=== PATIENT | female | born 1955 | race Caucasian/White ===

== ENCOUNTER 2019-03-11 03:50 | Emergency (ER) | payer OTHER ==
--- OUTSIDE RECORDS SUMMARY | 2019-03-11 03:53 | XMS REPORT ---
:1955 Author Organization [employer] Care Team Providers Name Role Phone Joie Santos Provider Role Unavailable Allergies, Adverse Reactions, Alerts Substance Reaction Event Type Symbicort facial swelling Drug Allergy Problems Problem Type Condition Code Onset Dates Condition Status Assessment Obesity (BMI 30-39.9) E66.9 Active Assessment Hot flashes R23.2 Active Assessment Asthma J45.909 Active Assessment Gastroesophageal reflux disease, K21.9 Active esophagitis presence not specified Assessment Chronic obstructive pulmonary J44.9 Active disease, unspecified COPD type Assessment Hyperlipidemia, unspecified E78.5 Active hyperlipidemia type Assessment Prediabetes R73.03 Active Assessment Hypertension, unspecified type I10 Active Problem Hypertension, unspecified type I10 Active Problem Hyperlipidemia E78.5 Active Problem Difficulty sleeping G47.9 Active Problem Hyperlipidemia, unspecified E78.5 Active hyperlipidemia type Problem Edema R60.9 Active Problem Asthma J45.909 Active Problem Mild memory disturbance R41.3 Active Problem Urinary incontinence, unspecified R32 Active type Problem Obesity (BMI 30-39.9) E66.9 Active Problem Chronic obstructive pulmonary J44.9 Active disease, unspecified COPD type Problem Gastroesophageal reflux disease, K21.9 Active esophagitis presence not specified Problem Prediabetes R73.03 Active Problem Anxiety F41.9 Active Problem Insomnia, unspecified type G47.00 Active Problem Hot flashes R23.2 Active Problem Hyperglycemia R73.9 Active Problem Urinary frequency R35.0 Active Assessment Depression with anxiety F41.8 Active Problem Pain in left knee M25.562 Active Assessment Insomnia, unspecified type G47.00 Active Problem Seasonal allergies J30.2 Active Problem GERD without esophagitis K21.9 Active Problem Pain in right ankle and joints of M25.571 Active right foot Problem COPD (chronic obstructive pulmonary J44.9 Active disease) Problem Hypertension I10 Active Problem Depression with anxiety F41.8 Active Problem Eosinophilia D72.1 Active Medications Medication Code Code Instructions Start End Status Dosage System Date Date Barry Huston [facility] 01138517031 100 MG Orally Active 1 capsule as Three times a needed day Meclizine HCl ND 56572524910 25 MG Orally Active 1 tablet as Once a day needed Bactroban [facility] 82311959344 2 % Externally Active 1 application Three times a to affected day area Trazodone HCl [facility] 76688557135 50 MG Orally Sept Active 1-2 tablets Once a day 20, at bedtime as 2018 needed for sleep Tramadol HCl [facility] 18328769232 50 MG Orally Active 1 tablet as Twice a day needed Amlodipine [facility] 60994164058 5 MG Orally Active 1 tablet Besylate Once a day Singulair ND 30582191418 10 MG Orally Active 1 tablet Once a day Fluconazole ND 62549010713 150 MG Orally Active 1 tablet Symbicort [facility] 95773512703 160-4.5 MCG/ACT Active 2 puffs Inhalation Twice a day Pantoprazole [facility] 82914306648 40 MG Orally Active 1 tablet Sodium Once a day BusPIRone HCl [facility] 02542606373 15 MG Orally Active 1 tablet as Twice a day needed for anxiety Amitriptyline [facility] 17396326969 10 MG Orally Nov 25, Active 1 tablet at HCl Once a day 2019 bedtime as needed for sleep Pravastatin [facility] 07332070643 20 mg Orally Active 1 tablet in Sodium Once a day evening Anoro Ellipta [facility] 35233681357 62.5-25 MCG/INH Active 1 puff Inhalation Once a day Augmentin [facility] 17593286749 500-125 MG Active 1 tablet Orally Twice daily Mobic [facility] 47020685199 15 MG Orally Active 1 tablet Once a day Metoprolol [facility] 20492862783 25 mg Orally Active 1 tablet with Tartrate Twice a day food Breo Ellipta [facility] 73842283205 100-25 MCG/INH Active 1 puff Inhalation Once a day Omeprazole ND 00451107130 40 MG Orally Active 1 capsule Once a day Duloxetine HCl [facility] 77450693181 60 MG Orally Active 1 capsule Twice a day Wellbutrin XL [facility] 31238611847 150 MG Orally Active 1 tablet in Once a day the morning Ativan [facility] 10719787667 0.5 MG Orally Active 1 tablet as twice a day needed Trazodone HCl [facility] 32950887459 100 MG Orally Active 1 tablet at Once a day bedtime Lipitor [facility] 23323050988 20 MG Orally Active 1 tablet Once a day Ventolin HFA [facility] 55275136964 108 (90 Base) Active 2 puffs as MCG/ACT needed for Inhalation sob/wheezing every 4-6 hrs Results No Known Results Summary Purpose eClinicalWorks Submission
--- OUTSIDE RECORDS SUMMARY | 2019-03-11 03:53 | XMS REPORT ---
:1955 Author Organization [employer] Care Team Providers Name Role Phone Joie Santos Provider Role Unavailable Allergies, Adverse Reactions, Alerts Substance Reaction Event Type Symbicort facial swelling Drug Allergy Problems Problem Type Condition Code Onset Dates Condition Status Problem Depression with anxiety F41.8 Active Problem Edema R60.9 Active Problem Eosinophilia D72.1 Active Problem Insomnia, unspecified type G47.00 Active Problem Difficulty sleeping G47.9 Active Assessment Medicare annual wellness visit, Z00.00 Active subsequent Assessment Depression screening Z13.31 Active Problem Hot flashes R23.2 Active Problem COPD (chronic obstructive pulmonary J44.9 Active disease) Problem Asthma J45.909 Active Problem Hyperlipidemia E78.5 Active Problem Hypertension I10 Active Problem Anxiety F41.9 Active Problem Gastroesophageal reflux disease, K21.9 Active esophagitis presence not specified Problem Hypertension, unspecified type I10 Active Problem Hyperlipidemia, unspecified E78.5 Active hyperlipidemia type Problem GERD without esophagitis K21.9 Active Problem Pain in right ankle and joints of M25.571 Active right foot Assessment Encounter for screening for Z13.820 Active osteoporosis Problem Chronic obstructive pulmonary J44.9 Active disease, unspecified COPD type Problem Pain in left knee M25.562 Active Assessment Encounter for screening mammogram Z12.31 Active for breast cancer Problem Mild memory disturbance R41.3 Active Problem Seasonal allergies J30.2 Active Medications Medication Code Code Instructions Start End Status Dosage System Date Date Breo Ellipta [facility] 36206482939 100-25 MCG/INH Active 1 puff Inhalation Once a day Amlodipine ND 22316532449 5 MG Orally Active 1 tablet Besylate Once a day Metoprolol ND 46973829894 25 mg Orally Active 1 tablet with Tartrate Twice a day food Augmentin [facility] 41857261642 500-125 MG Active 1 tablet Orally Twice daily Symbicort ND 02326844239 160-4.5 MCG/ACT Active 2 puffs Inhalation Twice a day Ativan ND 33607805089 0.5 MG Orally Active 1 tablet as twice a day needed Meclizine HCl [facility] 69172694221 25 MG Orally Active 1 tablet as Once a day needed Trazodone HCl [facility] 88479912986 50 MG Orally Sept 20, Active 1-2 tablets Once a day 2018 at bedtime as needed for sleep Omeprazole ND 34680630309 40 MG Orally Active 1 capsule Once a day Tramadol HCl ND 68808938351 50 MG Orally Active 1 tablet as Twice a day needed Bactroban [facility] 23465170868 2 % Externally Active 1 application Three times a to affected day area Wellbutrin XL [facility] 15036361824 150 MG Orally Active 1 tablet in Once a day the morning Lipitor ND 87490979628 20 MG Orally Active 1 tablet Once a day Tessalon Perles [facility] 29078022235 100 MG Orally Active 1 capsule as Three times a needed day Fluconazole ND 59902845970 150 MG Orally Active 1 tablet Pravastatin [facility] 18144106898 20 mg Orally Active 1 tablet in Sodium Once a day evening Singulair [facility] 67718288768 10 MG Orally Active 1 tablet Once a day Mobic [facility] 19928622773 15 MG Orally Active 1 tablet Once a day Pantoprazole [facility] 43995657266 40 MG Orally Active 1 tablet Sodium Once a day BusPIRone HCl ND 67846573896 7.5 MG Orally Active 1 tablet as Twice a day needed for anxiety Ventolin HFA [facility] 09147640119 108 (90 Base) Active 2 puffs as MCG/ACT needed Inhalation every 4-6 hrs Duloxetine HCl [facility] 48251532543 60 MG Orally Active 1 capsule Once a day Trazodone HCl [facility] 12977482004 100 MG Orally Active 1 tablet at Once a day bedtime Results No Known Results Summary Purpose eClinicalWorks Submission
--- OUTSIDE RECORDS SUMMARY | 2019-03-11 03:53 | XMS REPORT ---
:1955 Author Organization [employer] Care Team Providers Name Role Phone Joie Santos Provider Role Unavailable Allergies, Adverse Reactions, Alerts Substance Reaction Event Type Symbicort facial swelling Drug Allergy Problems Problem Type Condition Code Onset Dates Condition Status Assessment Hypertension, unspecified type I10 Active Assessment Prediabetes R73.03 Active Assessment Depression with anxiety F41.8 Active Problem Hypertension, unspecified type I10 Active [...] R73.9 Active Problem Urinary frequency R35.0 Active Problem Pain in left knee M25.562 Active Problem Seasonal allergies J30.2 Active Problem GERD without esophagitis K21.9 Active Problem Pain in right ankle and joints of M25.571 Active right foot Problem COPD (chronic obstructive pulmonary J44.9 Active disease) Problem Hypertension I10 Active Problem Depression with anxiety F41.8 Active Problem Eosinophilia D72.1 Active Medications Medication Code Code Instructions Start End Status Dosage System Date Date Symbicort [facility] 05475969152 160-4.5 MCG/ACT Active 2 puffs Inhalation Twice a day Duloxetine HCl [facility] 89212968602 60 MG Orally Active 1 capsule Twice a day Tessalon Perles [facility] 22944497683 100 MG Orally Active 1 capsule as Three times a needed day Meclizine HCl [facility] 41843275247 25 MG Orally Active 1 tablet as Once a day needed Tramadol HCl ND 64454341365 50 MG Orally Active 1 tablet as Twice a day needed Wellbutrin XL [facility] 63684102416 150 MG Orally Active 1 tablet in Once a day the morning Anoro Ellipta [facility] 19777497912 62.5-25 MCG/INH April Active 1 puff Inhalation Once , a day 2019 Metoprolol [facility] 83006471548 25 mg Orally Active 1 tablet with Tartrate Twice a day food BusPIRone HCl [facility] 73406373569 15 MG Orally Active 1 tablet as Twice a day needed for anxiety Augmentin [facility] 99717535141 500-125 MG Active 1 tablet Orally Twice daily Breo Ellipta [facility] 77697701095 100-25 MCG/INH Active 1 puff Inhalation Once a day Trazodone HCl [facility] 55249441827 100 MG Orally Active 1 tablet at Once a day bedtime Singulair [facility] 99557493020 10 MG Orally Active 1 tablet Once a day Omeprazole [facility] 01336929342 40 MG Orally Active 1 capsule Once a day Amlodipine [facility] 49936351683 5 MG Orally Active 1 tablet Besylate Once a day Ativan [facility] 92723234879 0.5 MG Orally Active 1 tablet as twice a day needed Fluconazole [facility] 27977917591 150 MG Orally Active 1 tablet Mobic [facility] 23730154250 15 MG Orally Active 1 tablet Once a day Pravastatin [facility] 01989121532 20 mg Orally Active 1 tablet in Sodium Once a day evening Trazodone HCl [facility] 11585141617 50 MG Orally Sept Active 1-2 tablets Once a day 20, at bedtime as 2018 needed for sleep Pantoprazole [facility] 77144349381 40 MG Orally Active 1 tablet Sodium Once a day Bactroban [facility] 07590775506 2 % Externally Active 1 application Three times a to affected day area Lipitor ND 72219644263 20 MG Orally Active 1 tablet Once a day Ventolin HFA [facility] 18576856255 108 (90 Base) Active 2 puffs as MCG/ACT needed Inhalation every 4-6 hrs Results Name Result Date Reference Range Unit Abnormality Flag GLUCOSE FINGER ----Result 121--[id number] Summary Purpose eClinicalWorks Submission
--- OUTSIDE RECORDS SUMMARY | 2019-03-11 03:53 | XMS REPORT ---
:1955 Author Organization eClinicalWorks Care Team Providers Name Role Phone Danielle Joie Provider Role Unavailable Allergies No Known Allergies Problems Problem Type Condition Code Onset Dates Condition Status Assessment Gastroesophageal reflux disease, K21.9 Active esophagitis [...] Problem Eosinophilia D72.1 Active Medications Medication Code System Code Instructions Start End Date Status Dosage Date Omeprazole [facility] 25338742542 40 MG Orally Once Active 1 capsule a day Results No Known Results Summary Purpose eClinicalWorks Submission
[2019-03-11] MEDS ORDERED: ONDANSETRON 4 MG/2 ML VIAL ONE (04:25)
[2019-03-11] MEDS ORDERED: NA CHLORIDE 0.9% 1,000 ML ONE ×2 (04:25→05:37)
[2019-03-11 04:48] LABS: Absolute Lymphocytes (CBC) 1.7 K/uL (0.7-4.9); Basophils % 0.9 % (0-1.3); Hematocrit 41.6 % (36.0-45.0); Lymphocytes % 25.1 % (15.3-44.8); MPV 9.5 fL (7.6-11.3); RBC Red Blood Cell Count 4.39 M/uL (3.86-4.86)
[2019-03-11 05:11] LABS: Albumin 3.6 g/dL (3.4-5.0); Bilirubin Direct 0.1 mg/dL (0-0.2); Bilirubin Total 0.5 mg/dL (0.2-1.0); Potassium 3.2 mmol/L (3.5-5.1)
[2019-03-11] MEDS ORDERED: POTASSIUM 25 MEQ EFFERV TAB ONE (06:27)
--- NOTE | 2019-03-11 06:52 | ER ---
Nurse's Notes [facility] Name: Gerda Cullen Age: 63 yrs Sex: Female : 1955 Arrival Date: 03/11/2019 Time: 03:53 Bed 15 Private MD: Diagnosis: Vomiting, unspecified;Diarrhea, unspecified;Other viral enteritis Presentation: 03/11 04:04 Presenting complaint: Patient states: Nausea, vomiting and diarrhea that started wh Sunday. Pt states she cant keep anything down. Accompanied by on and off fever. Transition of care: patient was not received from another setting of care. Onset of symptoms was March 11, 2019. Risk Assessment: Do you want to hurt yourself or someone else? Patient reports no desire to harm self or others. Initial Sepsis Screen: Does the patient meet any 2 criteria? HR > 90 bpm. Does the patient have a suspected source of infection? No. Patient's initial sepsis screen is negative. Care prior to arrival: None. 04:04 Method Of Arrival: Ambulatory 04:04 Acuity: AJAY 3 Historical: - Allergies: 04:06 No Known Allergies; - PMHx: 04:06 Anxiety; Asthma; Depression; Hypertension; - PSHx: 04:06 Appendectomy; Knee and Ankle SUrgery; - Immunization history:: Adult Immunizations not up to date. - Coronavirus screen:: The patient has NOT traveled to [place], [place], or [place] in the past 14 days. - Social history:: Smoking status: Patient uses street drugs, marijuana, Patient/guardian denies using. - Ebola Screening: : Patient negative for fever greater than or equal to 101.5 degrees Fahrenheit, and additional compatible Ebola Virus Disease symptoms Patient denies exposure to infectious person. Screenin:08 Abuse screen: Denies threats or abuse. Denies injuries from another. Nutritional screening: No deficits noted. Tuberculosis screening: No symptoms or risk factors identified. Fall Risk None identified. Assessment: 04:07 General: Appears in no apparent distress. Behavior is calm, cooperative, appropriate wh for age. Pain: Denies pain. Neuro: Level of Consciousness is awake, alert, obeys commands, Oriented to person, place, time, situation, Appropriate for age. Cardiovascular: Heart tones S1 S2. Respiratory: Airway is patent Respiratory effort is even, unlabored, Respiratory pattern is regular, symmetrical, Breath sounds are clear bilaterally. GI: Abdomen is flat, non-distended, Abd is soft and non tender X 4 quads. Reports diarrhea, nausea, vomiting. : No signs and/or symptoms were reported regarding the genitourinary system. EENT: No signs and/or symptoms were reported regarding the EENT system. Derm: Skin is intact, is healthy with good turgor, Skin is pink, warm \T\ dry. normal. Musculoskeletal: Circulation, motion, and sensation intact. 05:11 Reassessment: Patient appears in no apparent distress at this time. No changes from previously documented assessment. Patient and/or family updated on plan of care and expected duration. Pain level reassessed. Patient is alert, oriented x 3, equal unlabored respirations, skin warm/dry/pink. 06:29 Reassessment: Patient appears in no apparent distress at this time. No changes from previously documented assessment. Patient and/or family updated on plan of care and expected duration. Pain level reassessed. Patient is alert, oriented x 3, equal unlabored respirations, skin warm/dry/pink. Patient denies pain at this time. Patient states feeling better. Patient states symptoms have improved. Vital Signs: 04:06 BP 141 / 64; Pulse 114; Resp 18; Temp 98; Pulse Ox 99% ; Weight 127.01 kg; Height 5 ft. wh 9 in. (175.26 cm); Pain 0/10; 05:11 BP 134 / 72; Pulse 89; Resp 18; Pulse Ox 95% on R/A; wh 06:29 BP 130 / 81; Pulse 82; Resp 18; Pulse Ox 98% on R/A; wh 04:06 Body Mass Index 41.35 (127.01 kg, 175.26 cm) ED Course: 03:53 Patient arrived in ED. cl3 03:54 Cale Kenny is Primary Nurse. 04:05 Triage completed. wh 04:09 David Quigley MD is Attending Physician. tw4 04:09 Arm band placed on right wrist. wh 04:09 Patient has correct armband on for positive identification. Placed in gown. Bed in low wh position. Call light in reach. Side rails up X 1. Pulse ox on. NIBP on. 04:34 Inserted saline lock: 22 gauge in right wrist, using aseptic technique. Blood collected.ri 06:58 No provider procedures requiring assistance completed. IV discontinued, intact, bleeding controlled, No redness/swelling at site. Administered Medications: 04:36 Drug: NS 0.9% 1000 ml Route: IV; Rate: 1000 ml; Site: right hand; 05:46 Follow up: Response: No adverse reaction; IV Status: Completed infusion 04:36 Drug: Zofran 4 mg Route: IVP; Site: right hand; 05:46 Follow up: Response: No adverse reaction; Nausea is decreased 05:36 Drug: NS 0.9% 1000 ml Route: IV; Rate: 1000 ml; Site: right hand; 06:28 Follow up: Response: No adverse reaction; IV Status: Completed infusion 06:28 Drug: Potassium Effervescent Tablet 50 mEq Route: PO; 06:28 Follow up: Response: No adverse reaction Outcome: 06:52 Discharge ordered by . tw4 06:59 Discharged to home ambulatory, with family. 06:59 Condition: stable 06:59 Discharge instructions given to patient, family, Instructed on discharge instructions, follow up and referral plans. medication usage, POC Demonstrated understanding of instructions, follow-up care, medications, POC Prescriptions given X 2. 06:59 Patient left the ED. Signatures: Anne Martines ri Cale Kenny David Quigley MD MD tw4 Mery Lorenzo cl3
--- NOTE | 2019-03-11 06:52 | EDPHYS ---
Physician Documentation [facility] Name: Gerda Cullen Age: 63 yrs Sex: Female : 1955 Arrival Date: 03/11/2019 Time: 03:53 Bed 15 Private MD: ED Physician David Quigley HPI: 03/11 04:50 This 63 yrs old Female presents to ER via Ambulatory with complaints of tw4 Nausea/Vomiting/Diarrhea. 04:50 The patient presents to the emergency department with nausea, vomiting. Onset: The tw4 symptoms/episode began/occurred 2 day(s) ago. Possible causes: unknown. The symptoms are aggravated by nothing. The symptoms are alleviated by nothing. Severity of symptoms: At their worst the symptoms were moderate in the emergency department the symptoms are unchanged. The patient has not experienced similar symptoms in the past. 04:50 The patient presents to the emergency department with diarrhea. tw4 Historical: - Allergies: 04:06 No Known Allergies; - PMHx: 04:06 Anxiety; Asthma; Depression; Hypertension; - PSHx: 04:06 Appendectomy; Knee and Ankle SUrgery; wh - Immunization history:: Adult Immunizations not up to date. - Coronavirus screen:: The patient has NOT traveled to [place], [place], or [place] in the past 14 days. - Social history:: Smoking status: Patient uses street drugs, marijuana, Patient/guardian denies using. - Ebola Screening: : Patient negative for fever greater than or equal to 101.5 degrees Fahrenheit, and additional compatible Ebola Virus Disease symptoms Patient denies exposure to infectious person. ROS: 04:50 Constitutional: Negative for fever, chills, and weight loss. tw4 04:50 ENT: Negative for injury, pain, and discharge, Neck: Negative for injury, pain, and swelling, Cardiovascular: Negative for chest pain, palpitations, and edema, Respiratory: Negative for shortness of breath, cough, wheezing, and pleuritic chest pain, Back: Negative for injury and pain, MS/Extremity: Negative for injury and deformity, Skin: Negative for injury, rash, and discoloration, Neuro: Negative for headache, weakness, numbness, tingling, and seizure. 04:50 Abdomen/GI: Positive for nausea and vomiting, nausea, vomiting, and diarrhea, nausea, vomiting, diarrhea, Negative for abdominal pain, constipation, abdominal cramps, abdominal distension, anorexia, dysphagia, hematemesis, black/tarry stool, rectal pain, rectal bleeding, bowel incontinence, flatulence. Exam: 04:50 Constitutional: This is a well developed, well nourished patient who is awake, alert, tw4 and in no acute distress. Head/Face: Normocephalic, atraumatic. Chest/axilla: Normal chest wall appearance and motion. Nontender with no deformity. No lesions are appreciated. Cardiovascular: Regular rate and rhythm with a normal S1 and S2. No gallops, murmurs, or rubs. Normal PMI, no JVD. No pulse deficits. Respiratory: Lungs have equal breath sounds bilaterally, clear to auscultation and percussion. No rales, rhonchi or wheezes noted. No increased work of breathing, no retractions or nasal flaring. Abdomen/GI: Soft, non-tender, with normal bowel sounds. No distension or tympany. No guarding or rebound. No evidence of tenderness throughout. Back: No spinal tenderness. No costovertebral tenderness. Full range of motion. MS/ Extremity: Pulses equal, no cyanosis. Neurovascular intact. Full, normal range of motion. Neuro: Awake and alert, GCS 15, oriented to person, place, time, and situation. Cranial nerves II-XII grossly intact. Motor strength 5/5 in all extremities. Sensory grossly intact. Cerebellar exam normal. Normal gait. Vital Signs: 04:06 BP 141 / 64; Pulse 114; Resp 18; Temp 98; Pulse Ox 99% ; Weight 127.01 kg; Height 5 ft. wh 9 in. (175.26 cm); Pain 0/10; 05:11 BP 134 / 72; Pulse 89; Resp 18; Pulse Ox 95% on R/A; wh 06:29 BP 130 / 81; Pulse 82; Resp 18; Pulse Ox 98% on R/A; wh 04:06 Body Mass Index 41.35 (127.01 kg, 175.26 cm) MDM: 04:09 Patient medically screened. tw4 06:55 Differential diagnosis: Nonspecific abd pain, cholecystitis. Data reviewed: vital tw4 signs, nurses notes. Data interpreted: Pulse oximetry: Interpretation: normal. Counseling: I had a detailed discussion with the patient and/or guardian regarding: the historical points, exam findings, and any diagnostic results supporting the discharge/admit diagnosis. Medication response: Zofran relieved the patient's nausea. Response to treatment: the patient's symptoms have resolved after treatment, and as a result, I will discharge patient. Special discussion: I discussed with the patient/guardian in detail that at this point there is no indication for admission to the hospital. It is understood, however, that if the symptoms persist or worsen the patient needs to return immediately for re-evaluation. 03/11 04:03 Order name: Basic Metabolic Panel; Complete Time: 06:21 03/11 06:21 Interpretation: Normal except: K 3.2; GLUC 160; GFR 60. 03/11 04:03 Order name: CBC with Diff; Complete Time: 06:21 03/11 06:21 Interpretation: Within normal limits. 03/11 04:03 Order name: Creatinine for Radiology; Complete Time: 06:21 03/11 06:21 Interpretation: Within normal limits: CRE 0.94; GFR 60. 03/11 04:03 Order name: Hepatic Function; Complete Time: 06:21 03/11 06:21 Interpretation: Normal except: AST 71; GLOB 4.4; A/G 0.8. 03/11 04:03 Order name: Lipase; Complete Time: 06:21 03/11 06:21 Interpretation: Within normal limits: LIP 123. 03/11 04:03 Order name: IV Saline Lock; Complete Time: 04:37 03/11 04:03 Order name: Labs collected and sent; Complete Time: 04:37 4 Administered Medications: 04:36 Drug: NS 0.9% 1000 ml Route: IV; Rate: 1000 ml; Site: right hand; 05:46 Follow up: Response: No adverse reaction; IV Status: Completed infusion 04:36 Drug: Zofran 4 mg Route: IVP; Site: right hand; 05:46 Follow up: Response: No adverse reaction; Nausea is decreased 05:36 Drug: NS 0.9% 1000 ml Route: IV; Rate: 1000 ml; Site: right hand; 06:28 Follow up: Response: No adverse reaction; IV Status: Completed infusion 06:28 Drug: Potassium Effervescent Tablet 50 mEq Route: PO; 06:28 Follow up: Response: No adverse reaction Disposition: 03/11/19 06:52 Discharged to Home. Impression: Vomiting, unspecified, Diarrhea, unspecified, Other viral enteritis. - Condition is Stable. - Discharge Instructions: Diarrhea, Adult, Viral Gastroenteritis, Adult, [id number]. - Prescriptions for Zofran 4 mg Oral Tablet - take 1 tablet by ORAL route every 12 hours As needed; 6 tablet. Lomotil 2.5- 0.025 mg Oral Tablet - take 2 tablet by ORAL route once daily As needed; 20 tablet. - Medication Reconciliation Form, Thank You Letter, Antibiotic Education, Prescription Opioid Use form. - Follow up: Private Physician; When: Upon discharge from the Emergency Department; Reason: Recheck today's complaints, Continuance of care. - Problem is new. - Symptoms have improved. Signatures: Dispatcher [employer] Cale Chen Terrence, MD [place] tw4 Corrections: (The following items were deleted from the chart) 06:59 06:52 03/11/2019 06:52 Discharged to Home. Impression: Vomiting, unspecified; Diarrhea, wh unspecified; Other viral enteritis. Condition is Stable. Forms are Medication Reconciliation Form, Thank You Letter, Antibiotic Education, Prescription Opioid Use. Follow up: Private Physician; When: Upon discharge from the Emergency Department; Reason: Recheck today's complaints, Continuance of care. Problem is new. Symptoms have improved. tw4
[2019-03-11 07:08] VITALS: TEMP 98
[2019-03-11 07:10] VITALS: BP 130/81; O2SAT 98
== END 2019-03-11 06:59 | disposition home or self-care (01) ==
LOC: ER 03:50
DX: A08.4 Viral intestinal infection, unspecified (principal)
CPT/HCPCS: 96361; 85025; 80048; 36415; 80076; 83690; 96374; 99284; J7030 ×2; J2405

== ENCOUNTER 2019-03-13 18:40 | Inpatient (IN) | payer OTHER ==
--- OUTSIDE RECORDS SUMMARY | 2019-03-13 18:43 | XMS REPORT ---
[...] Start End Date Status Dosage Date Omeprazole [facility] 59022733289 40 MG Orally Once Active 1 capsule a day Results No Known Results Summary Purpose eClinicalWorks Submission
--- OUTSIDE RECORDS SUMMARY | 2019-03-13 18:43 | XMS REPORT ---
[...] Dosage System Date Date Barry Huston [facility] 63866849391 100 MG Orally Active 1 capsule as Three times a needed day Meclizine HCl ND 40992052815 25 MG Orally Active 1 tablet as Once a day needed Bactroban [facility] 79190703223 2 % Externally Active 1 application Three times a to affected day area Trazodone HCl [facility] 20634966127 50 MG Orally Sept Active 1-2 tablets Once a day 20, at bedtime as 2018 needed for sleep Tramadol HCl [facility] 38045028195 50 MG Orally Active 1 tablet as Twice a day needed Amlodipine [facility] 89034496912 5 MG Orally Active 1 tablet Besylate Once a day Singulair ND 41775177894 10 MG Orally Active 1 tablet Once a day Fluconazole ND 00718918887 150 MG Orally Active 1 tablet Symbicort [facility] 50003361245 160-4.5 MCG/ACT Active 2 puffs Inhalation Twice a day Pantoprazole [facility] 30545870123 40 MG Orally Active 1 tablet Sodium Once a day BusPIRone HCl [facility] 17071429613 15 MG Orally Active 1 tablet as Twice a day needed for anxiety Amitriptyline [facility] 16108393763 10 MG Orally Nov 25, Active 1 tablet at HCl Once a day 2019 bedtime as needed for sleep Pravastatin [facility] 23822882732 20 mg Orally Active 1 tablet in Sodium Once a day evening Anoro Ellipta [facility] 42941180029 62.5-25 MCG/INH Active 1 puff Inhalation Once a day Augmentin [facility] 32362443125 500-125 MG Active 1 tablet Orally Twice daily Mobic [facility] 52251816131 15 MG Orally Active 1 tablet Once a day Metoprolol [facility] 47324440116 25 mg Orally Active 1 tablet with Tartrate Twice a day food Breo Ellipta [facility] 74337618086 100-25 MCG/INH Active 1 puff Inhalation Once a day Omeprazole ND 83528554866 40 MG Orally Active 1 capsule Once a day Duloxetine HCl [facility] 54925667763 60 MG Orally Active 1 capsule Twice a day Wellbutrin XL [facility] 11966599377 150 MG Orally Active 1 tablet in Once a day the morning Ativan [facility] 90216670468 0.5 MG Orally Active 1 tablet as twice a day needed Trazodone HCl [facility] 94677725121 100 MG Orally Active 1 tablet at Once a day bedtime Lipitor [facility] 35663856062 20 MG Orally Active 1 tablet Once a day Ventolin HFA [facility] 13654852812 108 (90 Base) Active 2 puffs as MCG/ACT needed for Inhalation sob/wheezing every 4-6 hrs Results No Known Results Summary Purpose eClinicalWorks Submission
--- OUTSIDE RECORDS SUMMARY | 2019-03-13 18:43 | XMS REPORT ---
[...] End Status Dosage System Date Date Symbicort [facility] 48430212139 160-4.5 MCG/ACT Active 2 puffs Inhalation Twice a day Duloxetine HCl [facility] 85467632422 60 MG Orally Active 1 capsule Twice a day Tessalon Perles [facility] 31394811519 100 MG Orally Active 1 capsule as Three times a needed day Meclizine HCl [facility] 75506983008 25 MG Orally Active 1 tablet as Once a day needed Tramadol HCl ND 71558917951 50 MG Orally Active 1 tablet as Twice a day needed Wellbutrin XL [facility] 54048940108 150 MG Orally Active 1 tablet in Once a day the morning Anoro Ellipta [facility] 58204775000 62.5-25 MCG/INH April Active 1 puff Inhalation Once , a day 2019 Metoprolol [facility] 59167138160 25 mg Orally Active 1 tablet with Tartrate Twice a day food BusPIRone HCl [facility] 79748736191 15 MG Orally Active 1 tablet as Twice a day needed for anxiety Augmentin [facility] 30070209740 500-125 MG Active 1 tablet Orally Twice daily Breo Ellipta [facility] 79791394848 100-25 MCG/INH Active 1 puff Inhalation Once a day Trazodone HCl [facility] 92225899374 100 MG Orally Active 1 tablet at Once a day bedtime Singulair [facility] 66015364651 10 MG Orally Active 1 tablet Once a day Omeprazole [facility] 16621338613 40 MG Orally Active 1 capsule Once a day Amlodipine [facility] 60512181001 5 MG Orally Active 1 tablet Besylate Once a day Ativan [facility] 94357292782 0.5 MG Orally Active 1 tablet as twice a day needed Fluconazole [facility] 76141126504 150 MG Orally Active 1 tablet Mobic [facility] 03896418735 15 MG Orally Active 1 tablet Once a day Pravastatin [facility] 77399629494 20 mg Orally Active 1 tablet in Sodium Once a day evening Trazodone HCl [facility] 30164310612 50 MG Orally Sept Active 1-2 tablets Once a day 20, at bedtime as 2018 needed for sleep Pantoprazole [facility] 56129162990 40 MG Orally Active 1 tablet Sodium Once a day Bactroban [facility] 82446571222 2 % Externally Active 1 application Three times a to affected day area Lipitor ND 41673201298 20 MG Orally Active 1 tablet Once a day Ventolin HFA [facility] 29441876233 108 (90 Base) Active 2 puffs as MCG/ACT needed Inhalation every 4-6 hrs Results Name Result Date Reference Range Unit Abnormality Flag GLUCOSE FINGER ----Result 121--[id number] Summary Purpose eClinicalWorks Submission
--- OUTSIDE RECORDS SUMMARY | 2019-03-13 18:43 | XMS REPORT ---
[...] Status Dosage System Date Date Breo Ellipta [facility] 32863734378 100-25 MCG/INH Active 1 puff Inhalation Once a day Amlodipine ND 63281130892 5 MG Orally Active 1 tablet Besylate Once a day Metoprolol ND 39173142665 25 mg Orally Active 1 tablet with Tartrate Twice a day food Augmentin [facility] 74702043459 500-125 MG Active 1 tablet Orally Twice daily Symbicort ND 50837481103 160-4.5 MCG/ACT Active 2 puffs Inhalation Twice a day Ativan ND 02684093877 0.5 MG Orally Active 1 tablet as twice a day needed Meclizine HCl [facility] 15840150118 25 MG Orally Active 1 tablet as Once a day needed Trazodone HCl [facility] 63953209730 50 MG Orally Sept 20, Active 1-2 tablets Once a day 2018 at bedtime as needed for sleep Omeprazole ND 45328348431 40 MG Orally Active 1 capsule Once a day Tramadol HCl ND 04935222731 50 MG Orally Active 1 tablet as Twice a day needed Bactroban [facility] 29996983739 2 % Externally Active 1 application Three times a to affected day area Wellbutrin XL [facility] 31313211442 150 MG Orally Active 1 tablet in Once a day the morning Lipitor ND 98942161058 20 MG Orally Active 1 tablet Once a day Tessalon Perles [facility] 67651189460 100 MG Orally Active 1 capsule as Three times a needed day Fluconazole ND 86275528649 150 MG Orally Active 1 tablet Pravastatin [facility] 78569652038 20 mg Orally Active 1 tablet in Sodium Once a day evening Singulair [facility] 63941845328 10 MG Orally Active 1 tablet Once a day Mobic [facility] 68196286355 15 MG Orally Active 1 tablet Once a day Pantoprazole [facility] 30767388181 40 MG Orally Active 1 tablet Sodium Once a day BusPIRone HCl ND 67030729770 7.5 MG Orally Active 1 tablet as Twice a day needed for anxiety Ventolin HFA [facility] 26201112619 108 (90 Base) Active 2 puffs as MCG/ACT needed Inhalation every 4-6 hrs Duloxetine HCl [facility] 24686840096 60 MG Orally Active 1 capsule Once a day Trazodone HCl [facility] 51144723603 100 MG Orally Active 1 tablet at Once a day bedtime Results No Known Results Summary Purpose eClinicalWorks Submission
--- NOTE | 2019-03-13 19:45 | ER ---
Nurse's Notes [facility] Name: Gerda Cullen Age: 63 yrs Sex: Female : 1955 Arrival Date: 03/13/2019 Time: 18:46 Bed 28 Private MD: Diagnosis: Aphasia;Dizziness and giddiness;Hypokalemia;Hypomagnesemia Presentation: 03/13 18:51 Presenting complaint: states: "She seems different to me. She speaks ca1 differently and seems slower. I noticed it on Sunday. We were here Sunday for N/V, she was talking normally and she was herself then. Yesterday she just seems like a different person". C/o dizziness. Transition of care: patient was not received from another setting of care. Onset of symptoms was March 12, 2019. Risk Assessment: Do you want to hurt yourself or someone else? Patient reports no desire to harm self or others. Initial Sepsis Screen: Does the patient meet any 2 criteria? No. Patient's initial sepsis screen is negative. Does the patient have a suspected source of infection? No. Patient's initial sepsis screen is negative. Care prior to arrival: None. 18:51 Method Of Arrival: Ambulatory ca1 18:51 Acuity: AJAY 3 ca1 Triage Assessment: 18:59 General: Appears in no apparent distress. comfortable, Behavior is calm, cooperative, ca1 appropriate for age. Neuro: Level of Consciousness is awake, alert, obeys commands, Oriented to person, place, time, situation, Appropriate for age [place] Trimmer are equal bilaterally Gait is steady, Speech is normal, Facial symmetry appears normal. Historical: - Allergies: 18:58 No Known Allergies; ca1 - PMHx: 18:58 Anxiety; Asthma; Depression; Hypertension; ca1 - PSHx: 18:58 Appendectomy; Knee and Ankle SUrgery; ca1 - Immunization history:: Adult Immunizations not up to date. - Coronavirus screen:: The patient has NOT traveled to [place], [place], or [place] in the past 14 days. The patient has NOT had contact with known/suspected case of Coronavirus?. - Social history:: Smoking status: Patient denies any tobacco usage or history of. - Family history:: not pertinent. - Ebola Screening: : Patient negative for fever greater than or equal to 101.5 degrees Fahrenheit, and additional compatible Ebola Virus Disease symptoms Patient denies exposure to infectious person Patient denies travel to an Ebola-affected area in the 21 days before illness onset No symptoms or risks identified at this time. Screenin:51 VAN Screening: Arm Drift: Patient shows no arm weakness. Patient is VAN negative. ca1 19:40 Abuse screen: Denies threats or abuse. Denies injuries from another. Nutritional aa1 screening: No deficits noted. Tuberculosis screening: No symptoms or risk factors identified. Fall Risk None identified. Assessment: 19:40 VAN Scoring: Arm Drift: Patients demonstrates NO arm weakness. Patient is VAN Negative. aa1 Patient has been NPO before screening. The patient is alert, and able to follow commands. The patient does not exhibit slurred or garbled speech. The patient is not exhibiting difficulty speaking. The patient does not exhibit difficulty understanding words. The patient is able to swallow own secretions with no drooling or need for suction. Patient tolerated one teaspoon of water. No drooling, immediate coughing, gurgling, or clearing of the throat was noted. The patient tolerated 90mL of water. No drooling, immediate coughing, gurgling, or clearing of the throat was noted. The patient passed the bedside swallow screening. Oral medications may be given as ordered. Contact Physician for further diet orders. General: Appears in no apparent distress. comfortable, Behavior is calm, cooperative, appropriate for age. Pain: Denies pain. Neuro: Level of Consciousness is awake, alert, obeys commands, Oriented to person, place, time, situation, Moves all extremities. Full function Gait is steady, Speech is normal, Facial symmetry appears normal, Pupils are PERRLA, Intact. Cardiovascular: Heart tones S1 S2 present Rhythm is regular. Respiratory: Airway is patent Respiratory effort is even, unlabored, Respiratory pattern is regular, symmetrical. GI: No signs and/or symptoms were reported involving the gastrointestinal system. : No signs and/or symptoms were reported regarding the genitourinary system. EENT: No signs and/or symptoms were reported regarding the EENT system. Derm: Skin is intact, is healthy with good turgor, Skin is pink, warm \\T\\ dry. Musculoskeletal: Capillary refill < 3 seconds. 19:40 T-PA (Activase) Screening: Contraindications: Patient reports onset of signs and aa1 symptoms of stroke greater than 6 hours ago:. 19:55 Reassessment: Pt taken to CT at this time. aa1 20:15 Reassessment: Pt to be admitted as ER hold. aa1 Vital Signs: 18:58 BP 153 / 94; Pulse 88; Resp 18 S; Temp 98.4(O); Pulse Ox 98% on R/A; Weight 127.01 kg ca1 (R); Height 5 ft. 9 in. (175.26 cm) (R); 20:00 BP 138 / 96; Pulse 78; Resp 20; Temp 98.1; Pulse Ox 95% on R/A; Pain 0/10; aa1 18:58 Body Mass Index 41.35 (127.01 kg, 175.26 cm) ca1 NIH Stroke Scale Scores: 19:40 NIHSS Score: 0 aa1 ED Course: 18:46 Patient arrived in ED. ag5 18:58 Triage completed. ca1 18:58 Arm band placed on right wrist. ca1 19:12 Dae Nichole MD is Attending Physician. tanya 19:40 Patient has correct armband on for positive identification. Placed in gown. Bed in low aa1 position. Call light in reach. monitor and storage bin tender on. Pulse ox on. NIBP on. Warm blanket given. 19:44 Thanh Fan MD is Hospitalizing Provider. tanya 19:57 Kendal Hightower, DARLING is Primary Nurse. aa1 20:00 CT Head Brain wo Cont In Process Unspecified. EDMS 20:15 No provider procedures requiring assistance completed. Patient admitted, IV remains in aa1 place. 20:30 Initial lab(s) drawn, by me, sent to lab. Inserted saline lock: 22 gauge in left aa1 forearm, using aseptic technique. 20:37 XRAY Chest (1 view) In Process Unspecified. EDMS 20:43 US Carotid Artery Bilateral In Process Unspecified. EDMS 20:45 EKG done, by ED staff, reviewed by Dae Nichole MD. aa1 Administered Medications: 20:40 Drug: foLIC Acid 1 mg Route: IVPB; Site: left forearm; aa1 21:10 Follow up: IV Status: Completed infusion aa1 20:40 Drug: NS 0.9% 1000 ml Route: IV; Rate: 1 bolus; Site: left forearm; aa1 21:40 Follow up: IV Status: Completed infusion; IV Intake: 1000ml aa1 21:00 Drug: Aspirin Chewable Tablet 324 mg Route: PO; aa1 22:00 Follow up: Response: No adverse reaction aa1 22:55 Drug: Potassium Effervescent Tablet 50 mEq Route: PO; aa1 03/14 00:12 Follow up: Response: No adverse reaction aa1 03/13 23:17 Drug: Magnesium Sulfate 2 grams Route: IVPB; Infused Over: 2 hrs; Site: left forearm; aa1 03/14 00:11 Follow up: IV Status: Completed infusion aa1 Intake: 03/13 21:40 IV: 1000ml; Total: 1000ml. aa1 Outcome: 19:44 Decision to Hospitalize by Provider. tanya 20:15 [facility] aa1 20:15 Condition: stable 20:15 Discharge instructions given to patient, significant other, Instructed on the need for admit, Demonstrated understanding of instructions. 03/14 12:08 Patient left the ED. NIH Stroke Scale - NIH Stroke Score Date: 03/13/2019 Time: 19:40 Total Score = 0 1a. Level of Consciousness (LOC) - 0(Alert) 1b. Level of Consciousness (LOC) (Year \\T\\ Age) - 0(Both) 1c. LOC Commands (Open \\T\\ Closes Eyes/Retread Technician) - 0(Both) 2. Best Gaze (Lateral Gaze Paresis) - 0(Normal) 3. Visual Field Loss - 0(No visual loss) 4. Facial Palsy - 0(Normal) 5a. Left Arm: Motor (10-second hold) - 0(No drift) 5b. Right Arm: Motor (10-second hold) - 0(No drift) 6a. Left Leg: Motor (5-second hold - always test supine) - 0(No drift) 6b. Right Leg: Motor (5-second hold - always test supine) - 0(No drift) 7. Limb Ataxia (finger/nose \\T\\ heel/mayberry - test with eyes open) - 0(Absent) 8. Sensory Loss (pinprick arms/legs/face) - 0(Normal) 9. Best Language: Aphasia (description/naming/reading) - 0(No aphasia) 10. Dysarthria (speech clarity - read or repeat words) - 0(Normal) 11. Extinction and Inattention (visual/tactile/auditory/spatial/personal) - 0(No abnormality) Initials: aa1 Signatures: Dispatcher [employer] Kendal Brower RN RN aa1 Dae Nichole MD MD cha Smirch, Shelby, RN RN ss Marry Martinez RN RN ca1 Codi Garvin ag5
--- NOTE | 2019-03-13 19:46 | EDPHYS ---
Physician Documentation [facility] [place] Name: Gerda Cullen Age: 63 yrs Sex: Female : 1955 Arrival Date: 03/13/2019 Time: 18:46 Bed 28 Private MD: ED Physician Dae Nichole HPI: 03/13 19:39 This 63 yrs old Female presents to ER via Ambulatory with complaints of tanya Slurred Speech. 19:39 The patient presents to the emergency department with a speech or higher order brain tanya function problem, aphasia, that is mild, that is moderate. Onset: The symptoms/episode began/occurred 2 day(s) ago. Context: occurred at an unknown location. Associated signs and symptoms: Pertinent positives: dizziness. Severity of symptoms: At their worst the symptoms were mild in the emergency department the symptoms are unchanged. Patient's baseline: Neuro: alert and fully oriented. Current symptoms: dysphasia, headache. The patient has not experienced similar symptoms in the past. Historical: - Allergies: 18:58 No Known Allergies; ca1 - PMHx: 18:58 Anxiety; Asthma; Depression; Hypertension; ca1 - PSHx: 18:58 Appendectomy; Knee and Ankle SUrgery; ca1 - Immunization history:: Adult Immunizations not up to date. - Coronavirus screen:: The patient has NOT traveled to [place], [place], or [place] in the past 14 days. The patient has NOT had contact with known/suspected case of Coronavirus?. - Social history:: Smoking status: Patient denies any tobacco usage or history of. - Family history:: not pertinent. - Ebola Screening: : Patient negative for fever greater than or equal to 101.5 degrees Fahrenheit, and additional compatible Ebola Virus Disease symptoms Patient denies exposure to infectious person Patient denies travel to an Ebola-affected area in the 21 days before illness onset No symptoms or risks identified at this time. ROS: 19:39 Constitutional: Negative for fever, chills, and weight loss, Eyes: Negative for injury, tanya pain, redness, and discharge, ENT: Negative for injury, pain, and discharge, Neck: Negative for injury, pain, and swelling, Cardiovascular: Negative for chest pain, palpitations, and edema, Respiratory: Negative for shortness of breath, cough, wheezing, and pleuritic chest pain, Abdomen/GI: Negative for abdominal pain, nausea, vomiting, diarrhea, and constipation, Back: Negative for injury and pain, : Negative for injury, bleeding, discharge, and swelling, MS/Extremity: Negative for injury and deformity, Skin: Negative for injury, rash, and discoloration, Psych: Negative for depression, anxiety, suicide ideation, homicidal ideation, and hallucinations, Allergy/Immunology: Negative for hives, rash, and allergies, Endocrine: Negative for neck swelling, polydipsia, polyuria, polyphagia, and marked weight changes, Hematologic/Lymphatic: Negative for swollen nodes, abnormal bleeding, and unusual bruising. 19:39 Neuro: Positive for dizziness, speech changes, weakness. Exam: 19:39 Constitutional: This is a well developed, well nourished patient who is awake, alert, tanya and in no acute distress. Head/Face: Normocephalic, atraumatic. Eyes: Pupils equal round and reactive to light, extra-ocular motions intact. Lids and lashes normal. Conjunctiva and sclera are non-icteric and not injected. Cornea within normal limits. Periorbital areas with no swelling, redness, or edema. ENT: Nares patent. No nasal discharge, no septal abnormalities noted. Tympanic membranes are normal and external auditory canals are clear. Oropharynx with no redness, swelling, or masses, exudates, or evidence of obstruction, uvula midline. Mucous membranes moist. Neck: Trachea midline, no thyromegaly or masses palpated, and no cervical lymphadenopathy. Supple, full range of motion without nuchal rigidity, or vertebral point tenderness. No Meningismus. Chest/axilla: Normal chest wall appearance and motion. Nontender with no deformity. No lesions are appreciated. Cardiovascular: Regular rate and rhythm with a normal S1 and S2. No gallops, murmurs, or rubs. Normal PMI, no JVD. No pulse deficits. Respiratory: Lungs have equal breath sounds bilaterally, clear to auscultation and percussion. No rales, rhonchi or wheezes noted. No increased work of breathing, no retractions or nasal flaring. Abdomen/GI: Soft, non-tender, with normal bowel sounds. No distension or tympany. No guarding or rebound. No evidence of tenderness throughout. Back: No spinal tenderness. No costovertebral tenderness. Full range of motion. Skin: Warm, dry with normal turgor. Normal color with no rashes, no lesions, and no evidence of cellulitis. 19:39 Musculoskeletal/extremity: DVT Exam: No signs of deep vein thrombosis. no pain, no swelling, no tenderness, negative Homans' sign noted on exam, no appreciated bluish discoloration, no erythema, no increased warmth. Vital Signs: 18:58 BP 153 / 94; Pulse 88; Resp 18 S; Temp 98.4(O); Pulse Ox 98% on R/A; Weight 127.01 kg ca1 (R); Height 5 ft. 9 in. (175.26 cm) (R); 20:00 BP 138 / 96; Pulse 78; Resp 20; Temp 98.1; Pulse Ox 95% on R/A; Pain 0/10; aa1 18:58 Body Mass Index 41.35 (127.01 kg, 175.26 cm) ca1 NIH Stroke Scale Scores: 19:40 NIHSS Score: 0 aa1 MDM: 19:12 Patient medically screened. [facility] 19:39 Data reviewed: vital signs, nurses notes, lab test result(s), EKG, radiologic studies, [facility] CT scan, plain films. 03/13 19:39 Order name: Basic Metabolic Panel; Complete Time: 22:25 [facility] 03/13 19:39 Order name: CBC with Diff; Complete Time: 22:25 [facility] 03/13 19:39 Order name: LFT's; Complete Time: 22:25 [facility] 03/13 19:39 Order name: Magnesium; Complete Time: 22:25 [facility] 03/13 19:39 Order name: NT PRO-BNP; Complete Time: 22:25 [facility] 03/13 19:39 Order name: PT-INR; Complete Time: 22:25 [facility] 03/13 19:39 Order name: Troponin (emerg Dept Use Only); Complete Time: 22:25 [facility] 03/13 19:39 Order name: CRP; Complete Time: 22:25 [facility] 03/13 19:39 Order name: Sed Rate; Complete Time: 22:25 [facility] 03/13 20:35 Order name: CBC with Automated Diff EDMS 03/13 20:35 Order name: CBC with Automated Diff EDMS 03/13 20:35 Order name: Comprehensive Metabolic Panel EDMS 03/13 20:35 Order name: Comprehensive Metabolic Panel EDMS 03/13 20:35 Order name: Lipid Profile EDMS 03/13 20:35 Order name: Lipid Profile EDMS 03/13 20:35 Order name: Magnesium EDMS 03/13 20:35 Order name: Magnesium EDMS 03/13 20:35 Order name: Phosphorus EDMS 03/13 20:35 Order name: Phosphorus EDMS 03/13 20:35 Order name: Protime (+INR) EDMS 03/13 20:35 Order name: Protime (+INR) EDMS 03/13 20:35 Order name: Protime (+INR) EDMS 03/13 20:35 Order name: Protime (+INR) EDMS 03/13 20:35 Order name: Protime (+INR) EDMS 03/13 20:35 Order name: Protime (+INR) EDMS 03/13 20:35 Order name: PTT, Activated Partial Thromb EDMS 03/13 20:35 Order name: PTT, Activated Partial Thromb EDMS 03/13 20:35 Order name: PTT, Activated Partial Thromb EDMS 03/13 20:35 Order name: PTT, Activated Partial Thromb EDMS 03/13 20:35 Order name: PTT, Activated Partial Thromb EDMS 03/13 19:39 Order name: XRAY Chest (1 view); Complete Time: 22:25 [facility] 03/13 19:39 Order name: EKG; Complete Time: 19:41 03/13 19:39 Order name: Cardiac monitoring; Complete Time: 20:56 03/13 19:39 Order name: EKG - Nurse/Tech; Complete Time: 20:56 [facility] 03/13 19:39 Order name: IV Saline Lock; Complete Time: 20:56 03/13 19:39 Order name: Labs collected and sent; Complete Time: 20:57 03/13 19:39 Order name: O2 Per Protocol; Complete Time: 20:57 03/13 19:39 Order name: O2 Sat Monitoring; Complete Time: 20:57 [facility] 03/13 19:39 Order name: CT Head Brain wo Cont; Complete Time: 22:25 [facility] 03/13 19:39 Order name: US Carotid Artery Bilateral; Complete Time: 22:25 tanya 03/13 19:39 Order name: Urine Dipstick-Ancillary (obtain specimen); Complete Time: 23:43 [facility] 03/13 20:34 Order name: Physical Therapy Consult EDMS 03/13 20:34 Order name: Speech Therapy Consult EDGA 03/13 20:34 Order name: NPO [facility] 03/13 20:34 Order name: NPO [facility] 03/13 20:34 Order name: NPO [facility] 03/13 20:34 Order name: Echo with Doppler [facility] 03/13 20:34 Order name: EKG Electrocardiogram [facility] 03/13 20:35 Order name: PTT, Activated Partial Thromb [facility] 03/13 20:35 Order name: Stroke Protocol [facility] 03/13 23:43 Order name: Urine Dipstick--Ancillary (enter results) ar5 03/14 00:09 Order name: Urine Dipstick-Ancillary [facility] 03/14 08:42 Order name: MRI [facility] 03/14 08:44 Order name: MRI [facility] 03/14 08:51 Order name: MRI [facility] Administered Medications: 20:40 Drug: foLIC Acid 1 mg Route: IVPB; Site: left forearm; aa1 21:10 Follow up: IV Status: Completed infusion aa1 20:40 Drug: NS 0.9% 1000 ml Route: IV; Rate: 1 bolus; Site: left forearm; aa1 21:40 Follow up: IV Status: Completed infusion; IV Intake: 1000ml aa1 21:00 Drug: Aspirin Chewable Tablet 324 mg Route: PO; aa1 22:00 Follow up: Response: No adverse reaction aa1 22:55 Drug: Potassium Effervescent Tablet 50 mEq Route: PO; aa1 03/14 00:12 Follow up: Response: No adverse reaction [facility] 03/13 23:17 Drug: Magnesium Sulfate 2 grams Route: IVPB; Infused Over: 2 hrs; Site: left forearm; aa1 03/14 00:11 Follow up: IV Status: Completed infusion aa1 Disposition: 03/13/19 19:44 Hospitalization ordered by Thanh Fan for Observation. Preliminary diagnosis are Aphasia, Dizziness and giddiness, Hypokalemia, Hypomagnesemia. - Bed requested for [facility] ER HOLD. - Status is Observation. ss - Condition is Stable. - Problem is new. - Symptoms are unchanged. UTI on Admission? No NIH Stroke Scale - NIH Stroke Score Date: 03/13/2019 Time: 19:40 Total Score = 0 1a. Level of Consciousness (LOC) - 0(Alert) 1b. Level of Consciousness (LOC) (Year \T\ Age) - 0(Both) 1c. LOC Commands (Open \T\ Closes Eyes/Functional Support Analyst) - 0(Both) 2. Best Gaze (Lateral Gaze Paresis) - 0(Normal) 3. Visual Field Loss - 0(No visual loss) 4. Facial Palsy - 0(Normal) 5a. Left Arm: Motor (10-second hold) - 0(No drift) 5b. Right Arm: Motor (10-second hold) - 0(No drift) 6a. Left Leg: Motor (5-second hold - always test supine) - 0(No drift) 6b. Right Leg: Motor (5-second hold - always test supine) - 0(No drift) 7. Limb Ataxia (finger/nose \T\ heel/mayberry - test with eyes open) - 0(Absent) 8. Sensory Loss (pinprick arms/legs/face) - 0(Normal) 9. Best Language: Aphasia (description/naming/reading) - 0(No aphasia) 10. Dysarthria (speech clarity - read or repeat words) - 0(Normal) 11. Extinction and Inattention (visual/tactile/auditory/spatial/personal) - 0(No abnormality) Initials: aa1 Signatures: Dispatcher [employer] [facility] Kendal Hightower RN RN aa1 Dae Nichole MD MD cha Ballard, Brenda, RN RN bb Shalini Olsen RN RN ss Marry Martinez RN RN ca1 Corrections: (The following items were deleted from the chart) 03/13 20:03 19:44 Hospitalization Ordered by Thanh Fan MD for Observation. Preliminary bb diagnosis is Aphasia; Dizziness and giddiness. Bed requested for Telemetry/MedSurg (observation). Status is Observation. Condition is Stable. Problem is new. Symptoms are unchanged. UTI on Admission? No. tanya 20:37 20:36 Chest Pa And Lat (2 Views) ordered. [facility] 22:26 20:03 03/13/2019 19:44 Hospitalization Ordered by Thanh Fan MD for tanya Observation. Preliminary diagnosis is Aphasia; Dizziness and giddiness. Bed requested for [facility] ER HOLD. Status is Observation. Condition is Stable. Problem is new. Symptoms are unchanged. UTI on Admission? No. bb 03/14 12:08 03/13 22:26 03/13/2019 19:44 Hospitalization Ordered by Thanh Fan MD for ss Observation. Preliminary diagnosis is Aphasia; Dizziness and giddiness; Hypokalemia; Hypomagnesemia. Bed requested for [facility] ER HOLD. Status is Observation. Condition is Stable. Problem is new. Symptoms are unchanged. UTI on Admission? No. tanya
[2019-03-13] MEDS ORDERED: ASPIRIN 81 MG CHEWABLE TABLET ONE (19:57)
[2019-03-13] MEDS ORDERED: NA CHLORIDE 0.9% 1,000 ML ONE (19:57)
[2019-03-13] MEDS ORDERED: FOLIC ACID 5 MG/ML VIAL ONE (19:58)
--- NOTE | 2019-03-13 20:06 | RAD REPORT ---
EXAM DESCRIPTION: CT - Head Brain Wo Cont - 03/13/2019 8:00 pm CLINICAL HISTORY: Dizziness, slurred speech COMPARISON: None. TECHNIQUE: Axial 5 mm thick images of the head were obtained without IV contrast. All CT scans are performed using dose optimization technique as appropriate and may include automated exposure control or mA/KV adjustment according to patient size. FINDINGS: No intracranial hemorrhage, mass, edema or shift of mid-line structures. No acute infarcti on changes seen. No abnormal extra-axial fluid collections. Mild atrophy changes are present. Minimal chronic ischemic changes noted as well. Ventricles are in proportion to the volume loss. Mastoid air cells and visualized portions of the paranasal sinuses are clear. No acute bony findings. IMPRESSION: Negative non-contrast CT head examination for acute finding Mild atrophy and minimal chronic ischemic change. Chronic ischemic changes can mask nonhemorrhagic acute infarction. MR brain followup can be obtained if there is ongoing concern for acute ischemia.
[2019-03-13] MEDS ORDERED: ONDANSETRON 4 MG/2 ML VIAL IV PRN (20:26)
[2019-03-13] MEDS ORDERED: ACETAMINOPHEN 500 MG TAB PO PRN (20:26)
[2019-03-13] MEDS ORDERED: IPRATROPIUM BROM 0.5MG/2.5ML NEB PRN (20:26)
[2019-03-13] MEDS ORDERED: ALBUTEROL 2.5 MG/3 ML NEB SOL NEB PRN (20:26)
--- NOTE | 2019-03-13 20:56 | RAD REPORT ---
EXAM DESCRIPTION: RAD - Chest Single View - 03/13/2019 8:33 pm CLINICAL HISTORY: COUGH COMPARISON: Chest Pa And Lat (2 Views) dated 08/03/2017; CHEST PA AND LAT 2 VIEW dated 07/15/2013 TECHNIQUE: AP portable chest image was obtained 03/13/2019 8:33 pm . FINDINGS: Fibrotic without peripheral mass or consolidation. Interstitial pattern is accentuated by a shallow inspiration. No failure or volume overload. Mediastinal and hilar structures are accentuated by portable technique and shallow inspiration. True change is doubtful. Heart and vasculature are normal. No measurable pleural effusion and no pneumotho rax. No acute bony abnormality seen. No acute aortic findings suspected. IMPRESSION: No acute cardiopulmonary process. No significant change from comparison.
--- NOTE | 2019-03-13 20:59 | RAD REPORT ---
EXAM DESCRIPTION: - CP - 03/13/2019 8:43 pm CLINICAL HISTORY: Dizziness;Slurred speech COMPARISON: No comparisons TECHNIQUE: Real-time sonographic evaluation of bilateral carotid and vertebral systems was performed . Arias scale and Doppler interrogation were performed with waveform tracing bilaterally. FINDINGS: Normal high resistance waveforms are noted in both external carotid arteries. The common c arotid arteries and internal carotid arteries show normal low resistance waveforms. Minimal plaquing changes are present on the left. No significant luminal narrowing. Peak systolic and end diastolic velocity values and the ICA/CCA ratios are in the non-hemodynamically significant rang e. Antegrade flow seen in both vertebral arteries. Velocity values and ratios were recorded and are retained in the patient's imaging records. IMPRESSION: No significant atherosclerotic changes noted. No evidence of a hemodynamically significant stenosis.
[2019-03-13] MEDS ORDERED: ATORVASTATIN 20 MG TAB PO SCH (21:00)
[2019-03-13] MEDS: NA CHLORIDE 0.9% 1,000 ML IV SCH (21:00)
[2019-03-13 21:08] LABS: Absolute Lymphocytes (CBC) 2.3 K/uL (0.7-4.9); Basophils % 1.3 % (0-1.3); Hematocrit 37.6 % (36.0-45.0); Lymphocytes % 40.3 % (15.3-44.8); RBC Red Blood Cell Count 3.98 M/uL (3.86-4.86)
[2019-03-13 21:24] LABS: Protime INR 1.07
[2019-03-13 21:40] LABS: ALT/SGPT 143 U/L (12-78); AST/SGOT 101 U/L (15-37); Albumin 3.5 g/dL (3.4-5.0); Alkaline Phosphatase 85 U/L (45-117); BUN Blood Urea Nitrogen 6 mg/dL (7-18); Bicarbonate 26 mmol/L (21-32); Bilirubin Direct 0.2 mg/dL (0-0.2); Bilirubin Total 0.5 mg/dL (0.2-1.0); C-Reactive Protein 6.22 mg/L (<3.00); Glucose Level 91 mg/dL (74-106); NT PRO-BNP 174 pg/mL (<125); Potassium 3.1 mmol/L (3.5-5.1); Protein, Total 7.3 g/dL (6.4-8.2); Sodium Level 139 mmol/L (136-145); Troponin (Emerg Dept Use Only) < 0.02 ng/mL (0.0-0.045)
[2019-03-13 21:45] LABS: Magnesium 1.2 mg/dL (1.8-2.4)
[2019-03-13] MEDS ORDERED: Magnesium Sulfate 2gm IVPB 2 G/50 ML BAG IV ONE (22:49)
[2019-03-13] MEDS ORDERED: POTASSIUM 25 MEQ EFFERV TAB ONE (22:49)
[2019-03-14 00:09] LABS: Urine Blood NEGATIVE (NEG); Urine Glucose NEGATIVE (NEG); Urine Protein NEGATIVE (NEG)
[2019-03-14] MEDS ORDERED: NA CHLORIDE 0.9% 1,000 ML ONE (00:30)
[2019-03-14 01:15] VITALS: BMI 41.3
[2019-03-14 05:06] LABS: Absolute Lymphocytes (CBC) 1.9 K/uL (0.7-4.9); Basophils % 0.3 % (0-1.3); Hematocrit 33.7 % (36.0-45.0); Lymphocytes % 34.3 % (15.3-44.8); MPV 8.8 fL (7.6-11.3); RBC Red Blood Cell Count 3.57 M/uL (3.86-4.86)
[2019-03-14 05:12] LABS: Protime INR 1.02
[2019-03-14 05:29] LABS: ALT/SGPT 126 U/L (12-78); AST/SGOT 89 U/L (15-37); Albumin 3.1 g/dL (3.4-5.0); Alkaline Phosphatase 74 U/L (45-117); BUN Blood Urea Nitrogen 5 mg/dL (7-18); Bicarbonate 27 mmol/L (21-32); Bilirubin Total 0.4 mg/dL (0.2-1.0); Glucose Level 94 mg/dL (74-106); HDL Cholesterol 57 mg/dL (40-60); LDL Cholesterol, Calculated 91 (<130); Magnesium 1.9 mg/dL (1.8-2.4); Phosphorus 2.7 mg/dL (2.5-4.9); Potassium 3.5 mmol/L (3.5-5.1); Protein, Total 6.4 g/dL (6.4-8.2); Sodium Level 144 mmol/L (136-145)
[2019-03-14] MEDS ORDERED: ENOXAPARIN 40 MG/0.4 ML SQ ONE (07:33)
--- NOTE | 2019-03-14 08:40 | RAD REPORT ---
EXAM DESCRIPTION: MRI - Brain W/Wo Cont - 03/14/2019 8:06 am CLINICAL HISTORY: Aphasia, stroke-like symptoms, slurred speech COMPARISON: CT head March 13 TECHNIQUE: Sagittal and axial T1-weighted images were obtained. Axial PD/heavily T2-weighted and T2- FLAIR images were obtained along with axial DWI/ADC mapping sequences. Coronal heavily T2 weighted s equence obtained. Axial and coronal post-contrast T1-weighted images were also obtained. A 20 ml Mul tihance contrast following utilized. FINDINGS: No intracranial hemorrhage, mass or acute infarction. There is no edema or shift of midli ne structures. No extra-axial fluid collections. Arias-matter/white matter junction is preserved. Sig nal voids are seen as a normal finding in the major intracranial vessels. Atrophy changes are mild. P atient has scattered areas of T2/IR hyperintensity in the cerebral white matter. This is slightly mor e prominent in the left frontal lobe. Ventricles are in proportion to any volume loss. Small benign-a ppearing 12 mm nonenhancing mass seen in fatty tissues of the scalp on the left. Post-contrast images show normal enhancement. No dural thickening. Mastoid air cells and paranasal sinuses are clear. No globe or orbital content abnormality. Mild right deviation of the nasal septum present. IMPRESSION: Negative contrast enhanced MRI of the Brain for acute CVA or other acute intracranial fi nding. Atrophy changes are minimal. Patient has a mild chronic ischemic pattern in the cerebral white matter slightly more prominent into the left frontal lobe.
--- NOTE | 2019-03-14 08:44 | RAD REPORT ---
EXAM DESCRIPTION: MRI - MRA Head Wo Cont - 03/14/2019 8:05 am CLINICAL HISTORY: Aphasia, slurred speech, stroke-like symptoms COMPARISON: MRI brain same date, CT head March 13 TECHNIQUE: Axial and coronal 3D [id number] image acquisition was performed. 3D rotational images were generated with source and reconstruction images reviewed. Horizontal and vertical axis rotation al views generated using MIP protocol. FINDINGS: No aneurysm or vascular malformation identified. Distal vertebral arteries, basilar artery and distal internal carotid arteries show no significant atherosclerotic change. Minimal atheroscler otic changes present in the right M1 branch of the middle cerebral artery. Mild atherosclerotic gregg e seen in the far peripheral branches of each middle cerebral artery distribution. IMPRESSION: Minimal atherosclerotic changes are present. No occlusion or significant disease seen. No aneurysm or vascular malformation.
--- NOTE | 2019-03-14 08:46 | RAD REPORT ---
EXAM DESCRIPTION: MRI - MRA Neck W/Wo Cont - 03/14/2019 8:27 am CLINICAL HISTORY: Aphasia, slurred speech, stroke-like symptoms COMPARISON: MRI brain same date, MRA head same , CT head March 13 TECHNIQUE: MR angiography of the cervical vasculature performed. Coronal imaging plane acquisition u tilized. A 20 MultiHance contrast volume was utilized. Coronal reformatted images were generated and reviewed. Vertical axis 3D rotational projections obtained using maximum intensity projection protoco l. FINDINGS: Aortic arch is bovine configuration. Great vessel origins and vertebral artery origins hayes w no stenosis. The common carotid and internal carotid arteries show no measurable atherosclerotic di sease. No dissection changes. Vertebral arteries also without identifiable disease. Left vertebral ar sherron is dominant. IMPRESSION: MRA neck imaging shows no significant finding.
[2019-03-14] MEDS ORDERED: POTASSIUM CL SA 10 MEQ TAB PO ONE ×2 (08:52→09:12)
[2019-03-14] MEDS ORDERED: CLOPIDOGREL 75 MG TABLET PO SCH (09:00)
[2019-03-14] MEDS ORDERED: ASPIRIN EC 81 MG TAB PO SCH (09:00)
[2019-03-14] MEDS ORDERED: ENOXAPARIN 40 MG/0.4 ML SQ SCH (09:00)
[2019-03-14 09:02] VITALS: O2SAT 99
[2019-03-14] MEDS ORDERED: ASPIRIN EC 81 MG TAB PO ONE (09:12)
[2019-03-14] MEDS ORDERED: CLOPIDOGREL 75 MG TABLET ONE (09:12)
[2019-03-14] MEDS: NA CHLORIDE 0.9% 1,000 ML IV SCH (10:20)
--- NOTE | 2019-03-14 10:36 | P.HP ---
Certification for Inpatient Patient admitted to: Inpatient With expected LOS: >2 Midnights Patient will require the following post-hospital care: None Practitioner: I am a practitioner with admitting privileges, knowledge of patient current condition, hospital course, and medical plan of care. Services: Services provided to patient in accordance with Admission requirements found in Title 42 Section 412.3 of the Code of Federal Regulations Patient History Date of Service: 03/13/19 Reason for admission: Aphasia History of Present Illness: Patient is a 63-year-old female who came to the hospital with aphasia. This has been going on for about 48 hours. Her symptoms have not been improving. She came into the emergency room for further evaluation. She says she had an upper respiratory tract infection which she thought was the flu a couple of days ago. Those symptoms have improved. She came into the ER for further evaluation. In the ER CT scan of the brain was negative. Additional diagnostic studies have not revealed any abnormal finding. She will be admitted to the hospital and will get an MRI and neurology consultation in the morning. Allergies No Known Allergies Allergy (Verified 03/14/19 00:15) Home Medications: Amlodipine Besylate 1 tab PO DAILY 03/14/19 Buspirone HCl 1 tab PO BID PRN 03/14/19 Duloxetine HCl 1 cap PO BID 03/14/19 Metoprolol Tartrate 1 tab PO BID 03/14/19 Montelukast [Singulair*] 1 tab PO DAILY 03/14/19 Omeprazole [Prilosec] 40 mg PO DAILY 03/14/19 Pravastatin Sodium 1 tab PO BEDTIME 03/14/19 Umeclidinium Brm/Vilanterol Tr [Anoro Ellipta 62.5-25 Mcg INH] 1 puff IH DAILY 03/14/19 - Past Medical/Surgical History Diabetic: No -: anxiety -: asthma -: depression -: hypertension -: appendectomy -: knee sx -: ankle sx - Family History Father Family History: Reviewed- Non-Contributory - Social History Smoking Status: Former smoker Alcohol use: Yes CD- Drugs: No Caffeine use: No Place of Residence: Home Review of Systems 10-point ROS is otherwise unremarkable Physical Examination - Vital Signs Temperature: 98.0 F Blood Pressure: 136/81 Pulse: 79 Respirations: 17 Pulse Ox (%): 95 - Physical Exam General: Alert, In no apparent distress, Oriented x3 HEENT: Atraumatic, PERRLA, Mucous membr. moist/pink, EOMI, Sclerae nonicteric Neck: Supple, 2+ carotid pulse no bruit, No LAD, Without JVD or thyroid abnormality Respiratory: Clear to auscultation bilaterally, Normal air movement Cardiovascular: Regular rate/rhythm, Normal S1 S2, No murmurs Gastrointestinal: Normal bowel sounds, Soft and benign, Non-distended, No tenderness Musculoskeletal: No tenderness Integumentary: No rashes Neurological: Normal gait, Normal speech, Normal strength at 5/5 x4 extr, Normal tone, Sensation intact, Cranial nerves 3-12 intact, Normal affect Lymphatics: No axilla or inguinal lymphadenopathy - Studies Laboratory Data (last 24 hrs) 03/13/19 20:35: PT 12.6 H, INR 1.07 03/13/19 20:35: WBC 5.7 D, Hgb 12.9, Hct 37.6, Plt Count 237 03/13/19 20:35: Sodium 139, Potassium 3.1 L, BUN 6 L, Creatinine 0.77, Glucose 91, Magnesium 1.2 L*, Total Bilirubin 0.5, AST 101 H, ALT 143 H, Alkaline Phosphatase 85 Assessment & Plan - Problems (Diagnosis) (1) Aphasia Current Visit: Yes Status: Acute (2) HTN (hypertension) Current Visit: Yes Status: Acute (3) Anxiety and depression Current Visit: Yes Status: Acute - Plan 1. MRI of the brain 2. Echocardiogram and carotid Doppler 3. Anti-platelet therapy and statin therapy 4. Neurology consultation 5. Speech therapy evaluation 6. DVT prophylaxis Discharge Plan: Home Plan to discharge in: Greater than 2 days - Advance Directives Does patient have a Living Will: No Does patient have a Durable POA for Healthcare: No - Code Status/Comfort Care Code Status Assessed: Yes Code Status: Full Code Critical Care: No Time Spent Managing PTS Care (In Minutes): 45
--- NOTE | 2019-03-14 11:24 | P.DS ---
Discharge Date: 03/14/19 Disposition: ROUTINE DISCHARGE Discharge Condition: GOOD Reason for Admission: Aphasia - Problems (1) Aphasia Current Visit: Yes Status: Acute (2) HTN (hypertension) Current Visit: Yes Status: Acute (3) Anxiety and depression Current Visit: Yes Status: Acute Brief History of Present Illness: Patient is a 63-year-old female who came to the hospital with aphasia. This has been going on for about 48 hours. Her symptoms have not been improving. She came into the emergency room for further evaluation. She says she had an upper respiratory tract infection which she thought was the flu a couple of days ago. Those symptoms have improved. She came into the ER for further evaluation. In the ER CT scan of the brain was negative. Additional diagnostic studies have not revealed any abnormal finding. She will be admitted to the hospital and will get an MRI and neurology consultation in the morning. Hospital Course: PATIENT HAS DONE WELL DURING HOSPITAL STAY. PATIENT STILL HAS SOME DIFFICULTY WITH HER SPEECH. WE WILL HAVE NEUROLOGY ASSESS HER PRIOR TO DISCHARGING. HER MRI OF THE BRAIN CAME BACK COMPLETELY UNREMARKABLE. SHE HAS SOME MILD ATHEROSCLEROTIC DISEASE BUT NOTHING CONCERNING. NEUROLOGICALLY SHE APPEARS TO BE INTACT EXCEPT SHE DOES SOMETIMES STRUGGLE TO GET A WORKOUT BUT SHE IS COMMUNICATING FAIRLY EFFECTIVELY. AT THIS TIME WILL SPEAK WITH NEUROLOGY AND THEY ARE AGREEABLE WILL DISCHARGE HER HOME WITH OUTPATIENT FOLLOW- UP. CONTINUE ANTI-PLATELET THERAPY AND STATIN THERAPY. RETURN TO THE ER IF SYMPTOMS WORSEN. Vital Signs/Physical Exam: Temp Pulse Resp BP Pulse Ox 98.0 F 79 17 136/81 95 03/14/19 11:19 03/14/19 11:19 03/14/19 11:19 03/14/19 11:19 03/14/19 11:19 General: Alert, In no apparent distress, Oriented x3 Laboratory Data at Discharge: WBC 5.6 K/uL (4.3-10.9) 03/14/19 04:52 Hgb 11.4 g/dL (12.0-15.0) L 03/14/19 04:52 Hct 33.7 % (36.0-45.0) L 03/14/19 04:52 Plt Count 231 K/uL (152-406) 03/14/19 04:52 PT 12.0 SECONDS (9.5-12.5) 03/14/19 04:52 INR 1.02 03/14/19 04:52 APTT 28.1 SECONDS (24.3-36.9) 03/14/19 04:52 Sodium 144 mmol/L (136-145) 03/14/19 04:52 Potassium 3.5 mmol/L (3.5-5.1) 03/14/19 04:52 BUN 5 mg/dL (7-18) L 03/14/19 04:52 Creatinine 0.63 mg/dL (0.55-1.3) 03/14/19 04:52 Glucose 94 mg/dL (74-106) 03/14/19 04:52 Phosphorus 2.7 mg/dL (2.5-4.9) 03/14/19 04:52 Magnesium 1.9 mg/dL (1.8-2.4) D 03/14/19 04:52 Total Bilirubin 0.4 mg/dL (0.2-1.0) 03/14/19 04:52 AST 89 U/L (15-37) H 03/14/19 04:52 ALT 126 U/L (12-78) H 03/14/19 04:52 Alkaline Phosphatase 74 U/L (45-117) 03/14/19 04:52 Triglycerides 138 mg/dL (<150) 03/14/19 04:52 Cholesterol 176 mg/dL (<200) 03/14/19 04:52 HDL Cholesterol 57 mg/dL (40-60) 03/14/19 04:52 Cholesterol/HDL Ratio 3.09 03/14/19 04:52 Home Medications: Amlodipine Besylate 1 tab PO DAILY 03/14/19 Aspirin [Ecotrin 81 MG] 81 mg PO DAILY #30 tablet. 03/14/19 Atorvastatin Calcium [Lipitor*] 40 mg PO BEDTIME #30 tab 03/14/19 Buspirone HCl 1 tab PO BID PRN 03/14/19 Duloxetine HCl 1 cap PO BID 03/14/19 Metoprolol Tartrate 1 tab PO BID 03/14/19 Montelukast [Singulair*] 1 tab PO DAILY 03/14/19 Omeprazole [Prilosec] 40 mg PO DAILY 03/14/19 Pravastatin Sodium 1 tab PO BEDTIME 03/14/19 Umeclidinium Brm/Vilanterol Tr [Anoro Ellipta 62.5-25 Mcg INH] 1 puff IH DAILY 03/14/19 New Medications: Aspirin [Ecotrin 81 MG] 81 mg PO DAILY #30 tablet. Atorvastatin Calcium [Lipitor*] 40 mg PO BEDTIME #30 tab Patient Discharge Instructions: OK TO DC IV AND DC HOME. FOLLOW-UP WITH PRIMARY CARE PROVIDER IN 1-2 WEEKS. FOLLOW-UP WITH NEUROLOGY IN 1-2 WEEKS. RETURN TO THE ER IF SYMPTOMS WORSENS. CALL DR. OVALLES AT [phone] IF ANY QUESTIONS REGARDING HOSPITAL STAY. PLEASE CALL THE FLOOR AT [phone] IF ANY MEDICATION OR NURSING QUESTIONS. Diet: AHA Activity: Ad kasandra Followup: PIEDAD PABLO [Primary Care Provider] - Time spent managing pt's care (in minutes): 30
[2019-03-14 12:10] VITALS: BP 144/89; TEMP 98.2
--- NOTE | 2019-03-14 13:48 | EKG ---
Test Date: 2019-03-13 Test Time: 20:49:11 Third Cook: DYLLAN MEASUREMENT RESULTS: Intervals: Rate: 80 RI: 122 QRSD: 86 QT: 396 QTc: 456 [place]: P: -5 RI: 122 QRS: -18 T: -6 INTERPRETIVE STATEMENTS: Sinus rhythm with marked sinus arrhythmia Otherwise normal ECG Compared to ECG 07/21/2015 09:46:33 No significant changes Electronically Signed On 03-14-19 13:45:49 LIBRARY CLERICAL ASSISTANT by Deion Chester
--- NOTE | 2019-03-14 13:57 | ECHO ---
HEIGHT: 5 ft 9 in WEIGHT: 280 lb 0 oz DATE OF STUDY: 03/14/[address]: Thanh Fan MD 2-DIMENSIONAL: YES M.MODE: YES DOPPLER: YES COLOR FLOW: YES TDS: PORTABLE: DEFINITY: BUBBLE STUDY: DIAGNOSIS: STROKE CARDIAC HISTORY: CATHERIZATION: NO SURGERY: NO PROSTHETIC VALVE: NO PACEMAKER: NO MEASUREMENTS (cm) DIASTOLIC (NORMALS) SYSTOLIC (NORMALS) IVSd (0.6-1.2) LA Diam (1.9-4.0) LVEF % LVIDd (3.5-5.7) LVIDs (2.0-3.5) %FS % LVPWd (0.6-1.2) Ao Diam 3.0 (2.0-3.7) 2 DIMENSIONAL ASSESSMENT: RIGHT ATRIUM: NORMAL LEFT ATRIUM: NORMAL RIGHT VENTRICLE: NORMAL LEFT VENTRICLE: NORMAL TRICUSPID VALVE: NORMAL MITRAL VALVE: NORMAL PULMONIC VALVE: NORMAL AORTIC VALVE: NORMAL PERICARDIAL EFFUSION: NONE AORTIC ROOT: NORMAL LEFT VENTRICULAR WALL MOTION: NORMAL DOPPLER/COLOR FLOW: NORMAL COMMENTS: TECHNICALLY DIFFICULT STUDY. NORMAL LEFT VENTRICULAR SIZE AND FUNCTION. NO WALL MOTION ABNORMALITY. NO EFFUSION. NO THROMBUS. NO VEGETATION. TECHNOLOGIST: SONDRA NAILS
== END 2019-03-14 12:08 | disposition home or self-care (01) | DRG 93 ==
LOC: ER 18:40 → ERHOLD 21:08
PROVIDERS: ADMIT Hospitalist; ATTEND Hospitalist
DX: R47.01 Aphasia (principal); I10 Essential (primary) hypertension; F41.8 Other specified anxiety disorders
CPT/HCPCS: 36415; 70450; 70544; 70549; 70553; 71045; 80048; 80053; 80061; 80076; 81003; 83735; 83880; 84100; 84484; 85025; 85610; 85652; 85730; 86140; 93005; 93306; 93880; 96365; 96367; 99285; A9577; J1650; J3475; J7030

== ENCOUNTER 2023-03-07 07:14 | Day surgery (SDC) | payer OTHER ==
[2023-03-05 15:04] LABS: Absolute Lymphocytes (CBC) 0.6 K/uL (0.7-4.9); Lymphocytes % 8.3 % (15.3-44.8); MCV 95.2 fL (80-100); Platelets 265 thou/uL (152-406); RBC Red Blood Cell Count 3.68 M/uL (3.86-4.86)
[2023-03-05 15:32] LABS: Potassium 3.9 mEq/L (3.5-5.1)
--- NOTE | 2023-03-06 17:51 | EKG ---
Test Date: 2023-03-05 Test Time: 15:54:51 Network Management Specialist: ERIN MEASUREMENT RESULTS: Intervals: Rate: 88 MO: 138 QRSD: 84 QT: 366 QTc: 442 [place]: P: 56 MO: 138 QRS: 26 T: 42 INTERPRETIVE STATEMENTS: Normal sinus rhythm Normal ECG Compared to ECG 03/13/2019 20:49:11 Sinus arrhythmia no longer present Electronically Signed On 03-06-23 17:48:46 AUTO VINYL TOP INSTALLER by Jung Ramirez
[2023-03-07] MEDS ORDERED: CEFAZOLIN SODIUM 1 GM/VIAL ONE (07:29)
[2023-03-07] MEDS ORDERED: Ringers Lactate 1,000 ML IV ONE (07:29)
[2023-03-07] MEDS ORDERED: propofoL 200 MG/20 ML VIAL IV ONE (07:58)
[2023-03-07] MEDS ORDERED: ONDANSETRON 4 MG/2 ML VIAL ONE (07:58)
[2023-03-07] MEDS ORDERED: dexAMETHasone 10 MG/ML VIAL ONE (07:58)
[2023-03-07] MEDS ORDERED: FENTANYL CITR 100 MCG/2 ML ONE (07:58)
[2023-03-07] MEDS ORDERED: LIDOCAINE 2% MPF 5 ML VIAL ONE (07:58)
[2023-03-07] MEDS ORDERED: KETOROLAC 30 MG/ML INJ ONE (07:58)
[2023-03-07] MEDS ORDERED: MIDAZOLAM HCL 2 MG/2 ML INJ ONE (07:58)
[2023-03-07] MEDS ORDERED: BUPIVACAINE 0.5% PF 10 ML VIAL ONE (08:06)
[2023-03-07] MEDS ORDERED: METOPROLOL TARTRATE 5 MG/5 ML INJ IV ONE (08:58)
--- NOTE | 2023-03-07 09:21 | P.BOP ---
Preoperative diagnosis: Deep tender left axilla subQ mass Postoperative diagnosis: same Primary procedure: Excisional biopsy of Deep tender left axilla subQ mass 8x7cm Estimated blood loss: <10cc Specimen: mass Findings: deep mass Anesthesia: General Complications: None Transferred to: Recovery Room Condition: Good
[2023-03-07] MEDS ORDERED: CODEINE 30MG/APAP 300MG TAB ONE (10:21)
[2023-03-07 11:00] VITALS: BP 114/73; TEMP 97.9; O2SAT 94
--- NOTE | 2023-03-07 13:26 | OP ---
Date of Procedure: 03/07/2023 Surgeon: Juan Mendoza MD Preoperative Diagnosis: Deep tender left axillary subcutaneous mass. Postoperative Diagnosis: Deep tender left axillary subcutaneous mass. Procedure: Excisional biopsy of deep tender left axillary subcutaneous mass, 8 x 7 cm. Estimated Blood Loss: Less than 10 mL. Specimen: Mass. Findings: Mass deep inside the axillary fat pad of the axilla. Anesthesia: General plus local. Complications: None. Indications: This is a case of a 67-year-old patient, who comes to us with enlarge mass in the left axilla. It is deep inside, skin is not involved, but is getting bigger in size, she wants that excis ed. The benefits, alternatives, and risks of excision fully explained, which include, but not limite d to infection, bleeding, damage to adjacent structures as complication, hematoma, seroma, KS, and de ath. She also understands this may not relieve symptoms. She might need more than one surgical inte rvention. She signed a consent. The area of concern was marked by me and the patient in the holding room. Description Of Procedure: The patient was brought to the operating room, placed in supine position. Anesthesia was done without complication. Left axillary area was prepped and draped in a sterile fa shion. A time-out was called. An incision was made in the axillary hairline. Incision was carried down deep in the axillary region and into the axillary fat pad. We were able to identify this mass, enucleated properly with the help of blunt dissection. Mass was completely excised. Hemostasis obta ined. Then, we proceeded to close this in layers. Deep layers with 0 chromic and 3-0 chromic and sk in with staple. Irrigation was done before closure. Also hemostasis and local anesthesia was obtain ed. The patient was sent to recovery in stable condition. Disposition: Home. Activity: As tolerated. No heavy lifting. Follow up in my office in 1 week. Call for appointment [phone]. Keep area dry for 48 hours, then may shower. SUSANNA/MODL Voice ID: [id number] Report ID: [id number]
== END 2023-03-07 10:47 | disposition home or self-care (01) ==
LOC: OR 07:14
PROVIDERS: ATTEND Surgery
PROC: 0JBF0ZZ Excision of Left Upper Arm Subcutaneous Tissue and Fascia, Open Approach (ICD-10-PCS; principal; 2023-03-07 09:00)
DX: D17.22 Benign lipomatous neoplasm of skin and subcutaneous tissue of left arm (principal); I10 Essential (primary) hypertension; F41.9 Anxiety disorder, unspecified; J44.9 Chronic obstructive pulmonary disease, unspecified; E78.00 Pure hypercholesterolemia, unspecified; F32.A Depression, unspecified
CPT/HCPCS: 93005; 85025; 80048; 36415; 88304; 11406; J2704; J2001; J2250; J3010; J1100; J2405; J7120; J0690